=== PATIENT | male | born 1970 | race Caucasian/White ===

== ENCOUNTER 2021-06-29 18:05 | Inpatient (IN) ==
[2021-06-29] MEDS ORDERED: Ipratropium/Albuterol Neb 3 ML IH ONE (18:19)
[2021-06-29 18:50] LABS: Basophils % 0.1 %; Immature Granulocytes % 0.6 % (0-4); Mean Corpuscular Volume 90.6 fL (83.0-100.0); Red Blood Count 5.08 M/mcL (4.19-5.50); Red Cell Distribution Width 13.2 % (11.5-14.5)
[2021-06-29 18:51] LABS: Hemoglobin 15.5 g/dL (12.9-16.9); Immature Platelets 5.4 % (1.1-6.1); Lymphocytes # 0.7 K/mcL (0.6-4.6); Lymphocytes % 6.3 %; Mean Corpuscular HGB Conc 33.7 g/dL (31.6-35.5); Mean Corpuscular Hemoglobin 30.5 pg (28.0-33.3); Mean Platelet Volume 10.7 fL (9.4-12.4); Monocytes # 0.3 K/mcL (0.0-1.3); Monocytes % 2.7 %; Neutrophils # 9.4 K/mcL (1.6-8.9); Platelet Count 134 K/mcL (140-400); Segmented Neutrophils % 90.3 %; White Blood Count 10.4 K/mcL (4.3-11.1)
[2021-06-29 19:01] LABS: INR 1.2; Prothrombin Time 13.4 Seconds (9.4-12.1)
[2021-06-29 19:03] LABS: Activated Partial Thrombo Time 35.7 Seconds (26.0-36.0)
[2021-06-29 19:19] LABS: Alanine Aminotransferase 31 Units/L (7-52); Albumin 4.1 g/dL (3.5-5.7); Albumin/Globulin Ratio 1.1 (1.1-2.2); Alkaline Phosphatase 50 Units/L (34-104); Aspartate Amino Transferase 68 Units/L (13-39); BUN/Creatinine Ratio 13 (6-26); Bilirubin,Direct 0.1 mg/dL (0.0-0.2); Bilirubin,Indirect 0.6 mg/dL (0.0-1.0); Bilirubin,Total 0.7 mg/dL (0.3-1.0); Blood Urea Nitrogen 38 mg/dL (6-20); C-Reactive Protein 300 mg/L (Less than 10); Calcium 8.1 mg/dL (8.6-10.3); Carbon Dioxide 21 mEq/L (23-29); Chloride 100 mEq/L (98-107); Globulin 3.6 g/dL (2.4-3.5); Glucose 118 mg/dL (70-105); Lactate Dehydrogenase 696 Units/L (140-271); Magnesium 2.6 mg/dL (1.6-2.6); Osmolality,Calculated 290 (280-300); Phosphorous 3.9 mg/dL (2.7-4.5); Potassium 3.6 mEq/L (3.5-5.1); Sodium 135 mEq/L (136-145); Total Protein 7.7 g/dL (6.4-8.9); Troponin I 0.04 ng/mL (< 0.04); eGFR For African Americans 27 (> 60); eGFR For Non-African Americans 22 (> 60)
[2021-06-29 19:26] LABS: Ferritin > 1500 ng/mL (20-250)
[2021-06-29] MEDS ORDERED: cefTRIAXone 1,000 MG in 0.9 % Sodium Chloride Mini Bag 100 ML IVPB ONE (19:28)
[2021-06-29] MEDS ORDERED: Azithromycin 500 MG in 0.9 % Sodium Chloride 250 ML IVPB ONE (19:28)
[2021-06-29] MEDS ORDERED: Aspirin 325 MG TABLET PO ONE (19:44)
[2021-06-29] MEDS ORDERED: 0.9 % Sodium Chloride 500 ML IV ONE (20:09)
[2021-06-29] MEDS ORDERED: *HR* Heparin 5,000 UNIT/ML VIAL IVP PRN ×2 (20:12)
[2021-06-29] MEDS ORDERED: *HR* Heparin 5,000 UNIT/ML VIAL IVP ONE (20:12)
[2021-06-29] MEDS ORDERED: Heparin 25,000UNIT/250ML 1/2NS 25,000 UNIT/250 ML IV.SOLN IVC SCH (20:15)
[2021-06-29] MEDS ORDERED: Acetaminophen 325 MG TABLET PO PRN (20:36)
[2021-06-29] MEDS ORDERED: Naloxone 0.4 MG/ML INJ IVP PRN (20:36)
[2021-06-29] MEDS ORDERED: Ondansetron 4 MG/2 ML VIAL IVP PRN (20:36)
[2021-06-29 21:26] LABS: Hematocrit 41.4 % (37.5-50.1); Hemoglobin 14.6 g/dL (12.9-16.9); Mean Corpuscular HGB Conc 35.3 g/dL (31.6-35.5); Mean Corpuscular Hemoglobin 31.9 pg (28.0-33.3); Mean Corpuscular Volume 90.6 fL (83.0-100.0); Mean Platelet Volume 10.4 fL (9.4-12.4); Platelet Count 122 K/mcL (140-400); Red Blood Count 4.57 M/mcL (4.19-5.50); Red Cell Distribution Width 13.2 % (11.5-14.5); White Blood Count 9.2 K/mcL (4.3-11.1)
[2021-06-30 02:39] LABS: Basophils % 0.1 %; Hemoglobin 13.2 g/dL (12.9-16.9); Immature Granulocytes % 0.8 % (0-4); Segmented Neutrophils % 91.8 %
[2021-06-30 02:42] LABS: Hematocrit 39.4 % (37.5-50.1); Immature Platelets 4.4 % (1.1-6.1); Lymphocytes # 0.4 K/mcL (0.6-4.6); Lymphocytes % 4.9 %; Mean Corpuscular HGB Conc 33.5 g/dL (31.6-35.5); Mean Corpuscular Hemoglobin 30.3 pg (28.0-33.3); Mean Corpuscular Volume 90.6 fL (83.0-100.0); Mean Platelet Volume 10.2 fL (9.4-12.4); Monocytes # 0.2 K/mcL (0.0-1.3); Monocytes % 2.4 %; Neutrophils # 7.7 K/mcL (1.6-8.9); Platelet Count 126 K/mcL (140-400); Red Blood Count 4.35 M/mcL (4.19-5.50); White Blood Count 8.4 K/mcL (4.3-11.1)
[2021-06-30 02:55] LABS: Calcium 7.7 mg/dL (8.6-10.3); Magnesium 2.5 mg/dL (1.6-2.6); Potassium 3.6 mEq/L (3.5-5.1)
[2021-06-30 03:06] LABS: Thyroid Stimulating Hormone 0.826 mcIU/mL (0.340-5.600)
[2021-06-30 03:29] LABS: Estimated Average Glucose 117 mg/dl; Hemoglobin A1C 5.7 %
[2021-06-30] MEDS: Azithromycin 500 MG in 0.9 % Sodium Chloride 250 ML IVPB SCH (10:20)
[2021-06-30] MEDS: cefTRIAXone 1,000 MG in Water for inj. (sterile) 10 ML IVP SCH (10:20)
[2021-06-30] MEDS ORDERED: *HR* Heparin 5,000 UNIT/ML VIAL IVP PRN ×2 (10:23)
[2021-06-30] MEDS ORDERED: Dexamethasone Sodium Phos/PF 10 MG/ML VIAL IVP ONE (10:26)
[2021-06-30] MEDS ORDERED: Heparin 25,000UNIT/250ML 1/2NS 25,000 UNIT/250 ML IV.SOLN IVC SCH (10:30)
[2021-06-30] MEDS: 0.9 % Sodium Chloride 1,000 ML IVC SCH (11:09)
[2021-06-30] MEDS ORDERED: *HR* Heparin 5,000 UNIT/ML VIAL SQ SCH (14:00)
[2021-06-30] MEDS ORDERED: Heparin 25,000 UNIT/250 ML 25,000 UNIT/250 ML IV.SOLN IVC SCH (15:45)
[2021-06-30 20:05] LABS: Chloride,Urine < 15 mEq/L; Potassium,Urine 28.2 mEq/L; Sodium, Urine 21.9 mEq/L
[2021-06-30 20:13] LABS: Amorphous Sediment,Urine Few per hpf (None-Few); Bilirubin,Urine Negative (Negative); Blood,Urine Moderate (Negative); Clarity,Urine Turbid (Clear); Color,Urine Yellow (Yellow); Glucose,Urine (UA) Normal (Normal); Ketones,Urine Negative (Negative); Leukocyte Esterase,Urine Negative (Negative); Mucus,Urine Few per lpf (None-Few); Nitrite,Urine Negative (Negative); PH,Urine 5.5 pH Units (5.0-8.0); Protein,Urine 70 mg/dL (Neg-Trace); RBC,Urine 0-3 per hpf (0-3); Specific Gravity,Urine 1.018 (1.010-1.025); Squamous Epithelial Cell,Urine Few per hpf (None-Few); Urobilinogen,Urine Normal (Normal)
[2021-07-01] MEDS: 0.9 % Sodium Chloride 1,000 ML IVC SCH (03:33)
[2021-07-01] MEDS: cefTRIAXone 1,000 MG in Water for inj. (sterile) 10 ML IVP SCH (08:49)
[2021-07-01] MEDS: Azithromycin 500 MG in 0.9 % Sodium Chloride 250 ML IVPB SCH (08:49)
[2021-07-01] MEDS: Dexamethasone Sodium Phos/PF 10 MG/ML VIAL IVP SCH (08:50)
[2021-07-01] MEDS: Cholecalciferol (D-3) 1,000 UNIT (25MCG) TABLET PO SCH (08:51)
[2021-07-01 09:22] LABS: Basophils % 0.1 %; Hematocrit 39.8 % (37.5-50.1); Hemoglobin 13.5 g/dL (12.9-16.9); Immature Granulocytes % 1.2 % (0-4); Lymphocytes # 0.5 K/mcL (0.6-4.6); Lymphocytes % 5.1 %; Mean Corpuscular HGB Conc 33.9 g/dL (31.6-35.5); Mean Corpuscular Hemoglobin 30.9 pg (28.0-33.3); Mean Corpuscular Volume 91.1 fL (83.0-100.0); Monocytes # 0.5 K/mcL (0.0-1.3); Monocytes % 4.7 %; Neutrophils # 8.5 K/mcL (1.6-8.9); Platelet Count 174 K/mcL (140-400); Red Blood Count 4.37 M/mcL (4.19-5.50); Red Cell Distribution Width 13.4 % (11.5-14.5); Segmented Neutrophils % 88.9 %; White Blood Count 9.6 K/mcL (4.3-11.1)
[2021-07-01 09:28] LABS: Potassium 3.3 mEq/L (3.5-5.1)
[2021-07-01] MEDS ORDERED: Furosemide 40 MG/4 ML VIAL ONE (15:01)
[2021-07-01] MEDS: *HR* Heparin 5,000 UNIT/ML VIAL SQ SCH ×2 (15:25→22:51)
[2021-07-01] MEDS: Furosemide 40 MG/4 ML VIAL IVP SCH ×2 (15:29→20:01)
[2021-07-01] MEDS ORDERED: 0.9 % Sodium Chloride 1,000 ML IVC SCH (15:45)
[2021-07-01] MEDS ORDERED: *HR* Midazolam HCl 2 MG/2 ML VIAL IVP ONE (16:15)
[2021-07-01] MEDS ORDERED: *HR* Propofol 200 MG/20 ML VIAL IVP ONE ×2 (16:15→16:31)
[2021-07-01] MEDS ORDERED: *HR* Succinylcholine 200 MG/10 ML VIAL IVP ONE ×2 (16:15→16:31)
[2021-07-01] MEDS ORDERED: *HR* Rocuronium Bromide 50 MG/5 ML VIAL IVP ONE (16:15)
[2021-07-01] MEDS ORDERED: *HR* Etomidate 20 MG/10 ML AMPUL IVP ONE (16:15)
[2021-07-01] MEDS ORDERED: *HR* Midazolam HCl 5 MG/5 ML VIAL IVP ONE ×2 (16:15→16:31)
[2021-07-01] MEDS ORDERED: *HR* LORazepam 2 MG/ML VIAL IVP ONE (16:15)
[2021-07-01] MEDS ORDERED: Lidocaine -MPF 2% 5 ML VIAL ONE (16:31)
[2021-07-01] MEDS ORDERED: *HR* FentaNYL (PF) 100 MCG/2 ML VIAL ONE (16:31)
[2021-07-01] MEDS ORDERED: *HR* Etomidate 40 MG/20 ML VIAL IVP ONE (16:31)
[2021-07-01] MEDS ORDERED: *HR* Rocuronium Bromide 50 MG/5 ML VIAL ONE (16:32)
[2021-07-01] MEDS ORDERED: 0.9 % Sodium Chloride 500 ML ONE (16:42)
[2021-07-01] MEDS: Cisatracurium 200 MG in 0.9 % Sodium Chloride 180 ML IVC SCH (17:00)
[2021-07-01] MEDS: FentaNYL (PF) 1,000 MCG/100 ML IV.SOLN IVC SCH (17:13)
[2021-07-01] MEDS ORDERED: Artificial Tears SOLN 15 ML BOTTLE BOTH EYES PRN (17:32)
[2021-07-01 18:19] LABS: ABG Base Excess -6 mEq/L (-2 to 3); ABG HCO3 24 mEq/L (21-27); ABG Oxygen Saturation 99 % (95-98); ABG PCO2 63 mmHg (35-45); ABG PH 7.18 pH Units (7.32-7.45); ABG PO2 166 mmHg (85-104); ABG TCO2 26 mEq/L (20-26); Blood Gas Modality AF; Blood Gas VT 430 cc
[2021-07-01] MEDS ORDERED: Artificial Tears SOLN 15 ML BOTTLE BOTH EYES SCH (20:00)
[2021-07-01] MEDS: Artificial Tears SOLN 15 ML BOTTLE BOTH EYES SCH ×2 (20:00→23:49)
[2021-07-01] MEDS: Chlorhexidine Rinse 15 ML MOUTHWASH MM SCH (20:01)
[2021-07-01] MEDS ORDERED: Chlorhexidine Rinse 15 ML MOUTHWASH MM SCH (21:00)
[2021-07-01 22:43] LABS: VBG Ionized Calcium 1.06 mmol/L (1.15-1.35)
[2021-07-01 23:01] LABS: BUN/Creatinine Ratio 30 (6-26); Blood Urea Nitrogen 75 mg/dL (6-20); Calcium 7.5 mg/dL (8.6-10.3); Carbon Dioxide 21 mEq/L (23-29); Chloride 109 mEq/L (98-107); Glucose 171 mg/dL (70-105); Magnesium 3.2 mg/dL (1.6-2.6); Osmolality,Calculated 318 (280-300); Phosphorous 7.1 mg/dL (2.7-4.5); Sodium 141 mEq/L (136-145); eGFR For African Americans 34 (> 60); eGFR For Non-African Americans 28 (> 60)
[2021-07-01 23:02] LABS: Troponin I < 0.03 ng/mL (< 0.04)
[2021-07-02] MEDS: Cisatracurium 200 MG in 0.9 % Sodium Chloride 180 ML IVC SCH ×2 (02:20→13:50)
[2021-07-02] MEDS: Artificial Tears SOLN 15 ML BOTTLE BOTH EYES SCH ×5 (03:55→20:01)
[2021-07-02 04:14] LABS: ABG Base Excess -5 mEq/L (-2 to 3); ABG HCO3 22 mEq/L (21-27); ABG Oxygen Saturation 99 % (95-98); ABG PCO2 51 mmHg (35-45); ABG PH 7.25 pH Units (7.32-7.45); ABG PO2 139 mmHg (85-104); ABG TCO2 24 mEq/L (20-26); Blood Gas Modality ASSIST CONTROL; Blood Gas VT 430 cc
[2021-07-02 04:29] LABS: Basophils % 0.2 %; Hematocrit 35.2 % (37.5-50.1); Hemoglobin 11.8 g/dL (12.9-16.9); Lymphocytes # 0.5 K/mcL (0.6-4.6); Mean Corpuscular HGB Conc 33.5 g/dL (31.6-35.5); Mean Corpuscular Hemoglobin 31.3 pg (28.0-33.3); Mean Corpuscular Volume 93.4 fL (83.0-100.0); Mean Platelet Volume 9.7 fL (9.4-12.4); Monocytes # 0.5 K/mcL (0.0-1.3); Monocytes % 8.6 %; Platelet Count 178 K/mcL (140-400); Red Blood Count 3.77 M/mcL (4.19-5.50); Red Cell Distribution Width 13.6 % (11.5-14.5); Segmented Neutrophils % 81.2 %; White Blood Count 6.1 K/mcL (4.3-11.1)
[2021-07-02 04:36] LABS: VBG Ionized Calcium 1.06 mmol/L (1.15-1.35)
[2021-07-02 04:39] LABS: INR 1.1; Prothrombin Time 11.7 Seconds (9.4-12.1)
[2021-07-02 04:41] LABS: Activated Partial Thrombo Time 28.1 Seconds (26.0-36.0)
[2021-07-02 04:49] LABS: Bilirubin,Total 0.4 mg/dL (0.3-1.0); Calcium 7.4 mg/dL (8.6-10.3); Globulin 2.9 g/dL (2.4-3.5); Magnesium 3.3 mg/dL (1.6-2.6); Phosphorous 6.7 mg/dL (2.7-4.5); Potassium 3.9 mEq/L (3.5-5.1); Total Protein 5.9 g/dL (6.4-8.9)
[2021-07-02] MEDS: *HR* Heparin 5,000 UNIT/ML VIAL SQ SCH ×3 (05:34→21:29)
[2021-07-02] MEDS ORDERED: Calcium Gluconate 1gm/50mL 1 GM/50 ML BAG IVPB ONE (05:35)
[2021-07-02] MEDS: Chlorhexidine Rinse 15 ML MOUTHWASH MM SCH ×2 (07:39→20:01)
[2021-07-02] MEDS: Dexamethasone Sodium Phos/PF 10 MG/ML VIAL IVP SCH (07:41)
[2021-07-02] MEDS: Pantoprazole 40 MG VIAL IVP SCH (07:41)
[2021-07-02] MEDS: Cholecalciferol (D-3) 1,000 UNIT (25MCG) TABLET PO SCH (07:42)
[2021-07-02] MEDS: FentaNYL (PF) 1,000 MCG/100 ML IV.SOLN IVC SCH ×2 (13:19→21:29)
[2021-07-03] MEDS: Artificial Tears SOLN 15 ML BOTTLE BOTH EYES SCH ×7 (00:06→23:02)
[2021-07-03] MEDS: Cisatracurium 200 MG in 0.9 % Sodium Chloride 180 ML IVC SCH ×2 (00:25→18:15)
[2021-07-03 03:41] LABS: VBG Ionized Calcium 1.12 mmol/L (1.15-1.35)
[2021-07-03 03:53] LABS: Alanine Aminotransferase 97 Units/L (7-52); Albumin 2.9 g/dL (3.5-5.7); Albumin/Globulin Ratio 1.2 (1.1-2.2); Alkaline Phosphatase 46 Units/L (34-104); Aspartate Amino Transferase 54 Units/L (13-39); BUN/Creatinine Ratio 38 (6-26); Bilirubin,Total 0.4 mg/dL (0.3-1.0); Blood Urea Nitrogen 100 mg/dL (6-20); Calcium 7.8 mg/dL (8.6-10.3); Carbon Dioxide 22 mEq/L (23-29); Chloride 115 mEq/L (98-107); Globulin 2.4 g/dL (2.4-3.5); Glucose 166 mg/dL (70-105); Magnesium 3.8 mg/dL (1.6-2.6); Osmolality,Calculated 339 (280-300); Phosphorous 5.9 mg/dL (2.7-4.5); Sodium 147 mEq/L (136-145); Total Protein 5.3 g/dL (6.4-8.9); eGFR For African Americans 32 (> 60); eGFR For Non-African Americans 26 (> 60)
[2021-07-03 04:02] LABS: ABG Base Excess -4 mEq/L (-2 to 3); ABG HCO3 23 mEq/L (21-27); ABG Oxygen Saturation 97 % (95-98); ABG PCO2 44 mmHg (35-45); ABG PH 7.32 pH Units (7.32-7.45); ABG PO2 95 mmHg (85-104); ABG TCO2 24 mEq/L (20-26); Blood Gas Modality ASSIST CONTROL; Blood Gas VT 430 cc
[2021-07-03] MEDS: FentaNYL (PF) 1,000 MCG/100 ML IV.SOLN IVC SCH ×2 (05:01→10:27)
[2021-07-03 05:19] LABS: Basophils % 0.4 %; Hematocrit 34.1 % (37.5-50.1); Hemoglobin 11.1 g/dL (12.9-16.9); Immature Granulocytes % 3.8 % (0-4); Lymphocytes # 0.5 K/mcL (0.6-4.6); Mean Corpuscular HGB Conc 32.6 g/dL (31.6-35.5); Mean Corpuscular Hemoglobin 30.9 pg (28.0-33.3); Mean Platelet Volume 9.7 fL (9.4-12.4); Monocytes # 0.6 K/mcL (0.0-1.3); Monocytes % 10.2 %; Neutrophils # 4.4 K/mcL (1.6-8.9); Platelet Count 182 K/mcL (140-400); Red Blood Count 3.59 M/mcL (4.19-5.50); Red Cell Distribution Width 13.6 % (11.5-14.5); Segmented Neutrophils % 77.6 %; White Blood Count 5.6 K/mcL (4.3-11.1)
[2021-07-03] MEDS: *HR* Heparin 5,000 UNIT/ML VIAL SQ SCH ×3 (05:49→22:14)
[2021-07-03 06:44] LABS: Platelet Estimate Normal (Normal)
[2021-07-03 06:45] LABS: Reactive Lymphocytes Present (Not Present)
[2021-07-03] MEDS: Pantoprazole 40 MG VIAL IVP SCH (08:37)
[2021-07-03] MEDS: Chlorhexidine Rinse 15 ML MOUTHWASH MM SCH ×2 (08:38→20:26)
[2021-07-03] MEDS: Cholecalciferol (D-3) 1,000 UNIT (25MCG) TABLET PO SCH (08:39)
[2021-07-03] MEDS: Dexamethasone Sodium Phos/PF 10 MG/ML VIAL IVP SCH (08:39)
[2021-07-03] MEDS: Artificial Tears SOLN 15 ML BOTTLE BOTH EYES PRN (12:00)
[2021-07-03 17:21] LABS: Ferritin > 1500 ng/mL (20-250)
[2021-07-03] MEDS: FentaNYL (PF) 2,500 MCG/50 ML IV.SOLN IVC SCH ×2 (18:18→23:00)
[2021-07-04 04:02] LABS: ABG Base Excess -2 mEq/L (-2 to 3); ABG HCO3 25 mEq/L (21-27); ABG Oxygen Saturation 96 % (95-98); ABG PCO2 50 mmHg (35-45); ABG PO2 91 mmHg (85-104); ABG TCO2 26 mEq/L (20-26); Blood Gas Modality ASSIST CONTROL; Blood Gas VT 430 cc
[2021-07-04] MEDS: Cisatracurium 200 MG in 0.9 % Sodium Chloride 180 ML IVC SCH ×2 (04:35→16:40)
[2021-07-04 04:38] LABS: VBG Ionized Calcium 1.15 mmol/L (1.15-1.35)
[2021-07-04 04:46] LABS: Basophils % 0.3 %; Hematocrit 34.5 % (37.5-50.1); Hemoglobin 11.2 g/dL (12.9-16.9); Immature Granulocytes % 4.4 % (0-4); Lymphocytes # 0.5 K/mcL (0.6-4.6); Lymphocytes % 7.1 %; Mean Corpuscular HGB Conc 32.5 g/dL (31.6-35.5); Mean Corpuscular Hemoglobin 31.3 pg (28.0-33.3); Mean Corpuscular Volume 96.4 fL (83.0-100.0); Mean Platelet Volume 9.6 fL (9.4-12.4); Monocytes # 0.7 K/mcL (0.0-1.3); Monocytes % 10.1 %; Platelet Count 194 K/mcL (140-400); Red Blood Count 3.58 M/mcL (4.19-5.50); Red Cell Distribution Width 13.5 % (11.5-14.5); Segmented Neutrophils % 78.1 %; White Blood Count 7.1 K/mcL (4.3-11.1)
[2021-07-04 04:57] LABS: Neutrophils # 5.6 K/mcL (1.6-8.9)
[2021-07-04 05:11] LABS: Platelet Estimate Normal (Normal); Reactive Lymphocytes Present (Not Present)
[2021-07-04 05:16] LABS: Alanine Aminotransferase 74 Units/L (7-52); Albumin 2.9 g/dL (3.5-5.7); Albumin/Globulin Ratio 1.3 (1.1-2.2); Alkaline Phosphatase 50 Units/L (34-104); Aspartate Amino Transferase 30 Units/L (13-39); BUN/Creatinine Ratio 46 (6-26); Bilirubin,Total 0.4 mg/dL (0.3-1.0); Blood Urea Nitrogen 100 mg/dL (6-20); Calcium 7.8 mg/dL (8.6-10.3); Carbon Dioxide 23 mEq/L (23-29); Chloride 118 mEq/L (98-107); Globulin 2.3 g/dL (2.4-3.5); Glucose 154 mg/dL (70-105); Magnesium 4.1 mg/dL (1.6-2.6); Osmolality,Calculated 342 (280-300); Phosphorous 5.2 mg/dL (2.7-4.5); Potassium 4.4 mEq/L (3.5-5.1); Sodium 149 mEq/L (136-145); Total Protein 5.2 g/dL (6.4-8.9); eGFR For African Americans 39 (> 60); eGFR For Non-African Americans 32 (> 60)
[2021-07-04 05:34] LABS: Ferritin > 1500 ng/mL (20-250)
[2021-07-04] MEDS: Artificial Tears SOLN 15 ML BOTTLE BOTH EYES SCH ×6 (06:33→23:30)
[2021-07-04] MEDS: *HR* Heparin 5,000 UNIT/ML VIAL SQ SCH ×3 (06:34→21:27)
[2021-07-04] MEDS: Chlorhexidine Rinse 15 ML MOUTHWASH MM SCH ×2 (07:37→19:59)
[2021-07-04] MEDS: Cholecalciferol (D-3) 1,000 UNIT (25MCG) TABLET PO SCH (07:38)
[2021-07-04] MEDS: Pantoprazole 40 MG VIAL IVP SCH (07:38)
[2021-07-04] MEDS: Dexamethasone Sodium Phos/PF 10 MG/ML VIAL IVP SCH (07:38)
[2021-07-04] MEDS: Dexmedetomidine HCl 400 MCG/100 ML MLS IVC SCH ×2 (10:49→18:49)
[2021-07-04] MEDS: FentaNYL (PF) 2,500 MCG/50 ML IV.SOLN IVC SCH ×2 (11:48→23:30)
[2021-07-04] MEDS: D5% in Water 1,000 ML IVC SCH (17:03)
[2021-07-05] MEDS: Cisatracurium 200 MG in 0.9 % Sodium Chloride 180 ML IVC SCH (02:38)
[2021-07-05] MEDS: Artificial Tears SOLN 15 ML BOTTLE BOTH EYES SCH ×5 (02:38→19:54)
[2021-07-05 03:19] LABS: VBG Ionized Calcium 1.15 mmol/L (1.15-1.35)
[2021-07-05] MEDS: Dexmedetomidine HCl 400 MCG/100 ML MLS IVC SCH ×2 (03:27→13:07)
[2021-07-05 03:28] LABS: Basophils % 0.4 %; Eosinophils % 0.2 %; Hematocrit 37.2 % (37.5-50.1); Hemoglobin 11.6 g/dL (12.9-16.9); Immature Granulocytes % 5.5 % (0-4); Lymphocytes # 0.7 K/mcL (0.6-4.6); Lymphocytes % 7.2 %; Mean Corpuscular HGB Conc 31.2 g/dL (31.6-35.5); Mean Corpuscular Hemoglobin 31.1 pg (28.0-33.3); Mean Corpuscular Volume 99.7 fL (83.0-100.0); Mean Platelet Volume 9.5 fL (9.4-12.4); Monocytes # 0.7 K/mcL (0.0-1.3); Monocytes % 7.6 %; Neutrophils # 7.6 K/mcL (1.6-8.9); Platelet Count 196 K/mcL (140-400); Red Blood Count 3.73 M/mcL (4.19-5.50); Red Cell Distribution Width 13.2 % (11.5-14.5); Segmented Neutrophils % 79.1 %; White Blood Count 9.6 K/mcL (4.3-11.1)
[2021-07-05 03:50] LABS: Alanine Aminotransferase 69 Units/L (7-52); Albumin 2.8 g/dL (3.5-5.7); Albumin/Globulin Ratio 1.2 (1.1-2.2); Alkaline Phosphatase 54 Units/L (34-104); Aspartate Amino Transferase 27 Units/L (13-39); BUN/Creatinine Ratio 46 (6-26); Bilirubin,Total 0.5 mg/dL (0.3-1.0); Blood Urea Nitrogen 87 mg/dL (6-20); Calcium 7.6 mg/dL (8.6-10.3); Carbon Dioxide 25 mEq/L (23-29); Chloride 120 mEq/L (98-107); Globulin 2.3 g/dL (2.4-3.5); Glucose 116 mg/dL (70-105); Magnesium 3.7 mg/dL (1.6-2.6); Osmolality,Calculated 336 (280-300); Phosphorous 4.1 mg/dL (2.7-4.5); Potassium 4.7 mEq/L (3.5-5.1); Sodium 149 mEq/L (136-145); Total Protein 5.1 g/dL (6.4-8.9); eGFR For African Americans 45 (> 60); eGFR For Non-African Americans 37 (> 60)
[2021-07-05 03:53] LABS: Platelet Estimate Normal (Normal)
[2021-07-05 04:10] LABS: Ferritin > 1500 ng/mL (20-250)
[2021-07-05] MEDS: *HR* Heparin 5,000 UNIT/ML VIAL SQ SCH (05:26)
[2021-07-05 05:30] LABS: ABG Base Excess -1 mEq/L (-2 to 3); ABG HCO3 25 mEq/L (21-27); ABG Oxygen Saturation 90 % (95-98); ABG PCO2 45 mmHg (35-45); ABG PH 7.36 pH Units (7.32-7.45); ABG PO2 61 mmHg (85-104); ABG TCO2 26 mEq/L (20-26); Blood Gas Modality AF; Blood Gas VT 430 cc
[2021-07-05] MEDS: Chlorhexidine Rinse 15 ML MOUTHWASH MM SCH ×2 (07:17→19:54)
[2021-07-05] MEDS: Pantoprazole 40 MG VIAL IVP SCH (07:17)
[2021-07-05] MEDS: Dexamethasone Sodium Phos/PF 10 MG/ML VIAL IVP SCH (07:17)
[2021-07-05] MEDS: Cholecalciferol (D-3) 1,000 UNIT (25MCG) TABLET PO SCH (07:18)
[2021-07-05] MEDS: Nystatin SUSP 5 ML UD.LIQ PO SCH ×4 (08:52→19:54)
[2021-07-05 09:15] LABS: Bilirubin,Urine Negative (Negative); Blood,Urine Negative (Negative); Clarity,Urine Clear (Clear); Color,Urine Yellow (Yellow); Glucose,Urine (UA) Normal (Normal); Ketones,Urine Negative (Negative); Leukocyte Esterase,Urine Negative (Negative); Nitrite,Urine Negative (Negative); Protein,Urine Trace mg/dL (Neg-Trace); Urobilinogen,Urine Normal (Normal)
[2021-07-05 09:18] LABS: Bacteria,Urine Few per hpf (None-Few); Hyaline Casts,Urine Few per lpf (None Seen); Mucus,Urine Few per lpf (None-Few); RBC,Urine 0-3 per hpf (0-3); Squamous Epithelial Cell,Urine Few per hpf (None-Few); WBC,Urine 0-3 per hpf (0-3)
[2021-07-05] MEDS ORDERED: *HR* Heparin 5,000 UNIT/ML VIAL IVP PRN (09:37)
[2021-07-05] MEDS ORDERED: Heparin 25,000 UNIT/250 ML 25,000 UNIT/250 ML IV.SOLN IVC SCH (09:45)
[2021-07-05] MEDS: HEPARIN IVC SCH (11:06)
[2021-07-05] MEDS: D5 IVC SCH ×2 (11:06→13:08)
[2021-07-05] MEDS: WATER IVC SCH ×2 (11:06→13:08)
[2021-07-05 11:18] LABS: Hematocrit 37.7 % (37.5-50.1); Hemoglobin 11.7 g/dL (12.9-16.9); Mean Platelet Volume 9.4 fL (9.4-12.4); Platelet Count 198 K/mcL (140-400); Red Blood Count 3.77 M/mcL (4.19-5.50); Red Cell Distribution Width 13.2 % (11.5-14.5); White Blood Count 14.2 K/mcL (4.3-11.1)
[2021-07-05 11:26] LABS: Heparin anti-factor XA UFH 0.09 IU/mL (0.30-0.70)
[2021-07-05 11:27] LABS: Prothrombin Time 11.4 Seconds (9.4-12.1)
[2021-07-05] MEDS: Norepinephrine 4 MG/254 ML IV.SOLN IVC SCH (12:46)
[2021-07-05] MEDS: D5% in Water 1,000 ML IVC SCH (12:47)
[2021-07-05] MEDS: FentaNYL (PF) 2,500 MCG/50 ML IV.SOLN IVC SCH (13:07)
[2021-07-05] MEDS: CISATRACURIUM IVC SCH (13:08)
[2021-07-05 14:34] LABS: ABG Base Excess -2 mEq/L (-2 to 3); ABG HCO3 25 mEq/L (21-27); ABG Oxygen Saturation 96 % (95-98); ABG PCO2 52 mmHg (35-45); ABG PH 7.29 pH Units (7.32-7.45); ABG PO2 92 mmHg (85-104); ABG TCO2 27 mEq/L (20-26); Blood Gas VT 430 cc
[2021-07-05] MEDS: Piperacillin/Tazobactam 3.375 GM in 0.9 % Sodium Chloride Mini Bag 100 ML IVPB SCH (16:15)
[2021-07-05] MEDS ORDERED: 0.9 % Sodium Chloride 1,000 ML ONE (16:37)
[2021-07-06] MEDS: Piperacillin/Tazobactam 3.375 GM in 0.9 % Sodium Chloride Mini Bag 100 ML IVPB SCH ×4 (00:01→23:26)
[2021-07-06] MEDS: Artificial Tears SOLN 15 ML BOTTLE BOTH EYES SCH ×7 (00:02→23:26)
[2021-07-06] MEDS: Dexmedetomidine HCl 400 MCG/100 ML MLS IVC SCH ×4 (00:50→19:44)
[2021-07-06] MEDS: D5 IVC SCH ×4 (01:30→21:53)
[2021-07-06] MEDS: CISATRACURIUM IVC SCH ×3 (01:30→21:53)
[2021-07-06] MEDS: WATER IVC SCH ×4 (01:30→21:53)
[2021-07-06] MEDS: D5% in Water 1,000 ML IVC SCH ×2 (03:11→18:21)
[2021-07-06] MEDS: FentaNYL (PF) 2,500 MCG/50 ML IV.SOLN IVC SCH ×2 (03:25→15:44)
[2021-07-06 03:31] LABS: Basophils % 0.3 %; Eosinophils # 0.1 K/mcL (0.0-0.6); Eosinophils % 1.1 %; Hematocrit 35.8 % (37.5-50.1); Hemoglobin 11.4 g/dL (12.9-16.9); Immature Granulocytes % 6.6 % (0-4); Lymphocytes # 0.9 K/mcL (0.6-4.6); Lymphocytes % 7.5 %; Mean Corpuscular HGB Conc 31.8 g/dL (31.6-35.5); Mean Corpuscular Volume 97.3 fL (83.0-100.0); Mean Platelet Volume 9.4 fL (9.4-12.4); Monocytes # 0.6 K/mcL (0.0-1.3); Monocytes % 5.3 %; Neutrophils # 9.4 K/mcL (1.6-8.9); Platelet Count 184 K/mcL (140-400); Red Blood Count 3.68 M/mcL (4.19-5.50); Red Cell Distribution Width 13.1 % (11.5-14.5); Segmented Neutrophils % 79.2 %; White Blood Count 11.9 K/mcL (4.3-11.1)
[2021-07-06 03:43] LABS: VBG Ionized Calcium 1.01 mmol/L (1.15-1.35)
[2021-07-06 03:45] LABS: Alanine Aminotransferase 60 Units/L (7-52); Albumin 2.8 g/dL (3.5-5.7); Albumin/Globulin Ratio 1.3 (1.1-2.2); Alkaline Phosphatase 58 Units/L (34-104); Aspartate Amino Transferase 29 Units/L (13-39); BUN/Creatinine Ratio 48 (6-26); Bilirubin,Total 0.6 mg/dL (0.3-1.0); Blood Urea Nitrogen 69 mg/dL (6-20); Calcium 7.3 mg/dL (8.6-10.3); Carbon Dioxide 22 mEq/L (23-29); Chloride 117 mEq/L (98-107); Globulin 2.2 g/dL (2.4-3.5); Glucose 121 mg/dL (70-105); Magnesium 3.3 mg/dL (1.6-2.6); Osmolality,Calculated 323 (280-300); Phosphorous 3.9 mg/dL (2.7-4.5); Potassium 4.6 mEq/L (3.5-5.1); Sodium 146 mEq/L (136-145); eGFR For African Americans > 60 (> 60); eGFR For Non-African Americans 52 (> 60)
[2021-07-06 04:03] LABS: Ferritin > 1500 ng/mL (20-250)
[2021-07-06 04:42] LABS: ABG Base Excess -2 mEq/L (-2 to 3); ABG HCO3 24 mEq/L (21-27); ABG Oxygen Saturation 97 % (95-98); ABG PCO2 43 mmHg (35-45); ABG PH 7.35 pH Units (7.32-7.45); ABG PO2 91 mmHg (85-104); ABG TCO2 25 mEq/L (20-26); Blood Gas Modality AF; Blood Gas VT 430 cc
[2021-07-06 04:51] LABS: Platelet Estimate Normal (Normal)
[2021-07-06] MEDS: Calcium Gluconate 1gm/50mL 1 GM/50 ML BAG IVPB SCH ×2 (06:00→06:59)
[2021-07-06] MEDS: HEPARIN IVC SCH (07:04)
[2021-07-06] MEDS: Chlorhexidine Rinse 15 ML MOUTHWASH MM SCH ×2 (07:12→20:35)
[2021-07-06] MEDS: Pantoprazole 40 MG VIAL IVP SCH (07:13)
[2021-07-06] MEDS: Nystatin SUSP 5 ML UD.LIQ PO SCH ×4 (07:13→20:35)
[2021-07-06] MEDS: Cholecalciferol (D-3) 1,000 UNIT (25MCG) TABLET PO SCH (07:13)
[2021-07-06] MEDS: Dexamethasone Sodium Phos/PF 10 MG/ML VIAL IVP SCH (07:13)
[2021-07-06] MEDS ORDERED: Furosemide 40 MG/4 ML VIAL ONE (07:16)
[2021-07-06] MEDS ORDERED: Furosemide 40 MG/4 ML VIAL IVP SCH (09:00)
[2021-07-06] MEDS ORDERED: *HR* Midazolam HCl 2 MG/2 ML VIAL IVP PRN (13:55)
[2021-07-06] MEDS: Norepinephrine 4 MG/254 ML IV.SOLN IVC SCH (14:26)
[2021-07-07] MEDS: Dexmedetomidine HCl 400 MCG/100 ML MLS IVC SCH ×6 (00:25→23:40)
[2021-07-07] MEDS: Norepinephrine 4 MG/254 ML IV.SOLN IVC SCH ×3 (02:44→15:22)
[2021-07-07] MEDS: Artificial Tears SOLN 15 ML BOTTLE BOTH EYES SCH ×5 (04:20→20:04)
[2021-07-07 04:21] LABS: Basophils # 0.1 K/mcL (0.0-0.2); Basophils % 0.4 %; Eosinophils # 0.3 K/mcL (0.0-0.6); Eosinophils % 1.6 %; Immature Granulocytes % 7.6 % (0-4); Lymphocytes # 1.1 K/mcL (0.6-4.6); Lymphocytes % 5.6 %; Mean Corpuscular HGB Conc 32.4 g/dL (31.6-35.5); Mean Corpuscular Hemoglobin 31.5 pg (28.0-33.3); Mean Corpuscular Volume 97.2 fL (83.0-100.0); Monocytes # 1.1 K/mcL (0.0-1.3); Monocytes % 5.8 %; Neutrophils # 15.4 K/mcL (1.6-8.9); Platelet Count 248 K/mcL (140-400); Red Blood Count 4.32 M/mcL (4.19-5.50)
[2021-07-07 04:25] LABS: Hemoglobin 13.6 g/dL (12.9-16.9); White Blood Count 19.5 K/mcL (4.3-11.1)
[2021-07-07 04:38] LABS: ABG Base Excess -2 mEq/L (-2 to 3); ABG HCO3 26 mEq/L (21-27); ABG Oxygen Saturation 83 % (95-98); ABG PCO2 55 mmHg (35-45); ABG PH 7.28 pH Units (7.32-7.45); ABG PO2 54 mmHg (85-104); ABG TCO2 27 mEq/L (20-26); Blood Gas VT 430 cc
[2021-07-07 04:39] LABS: Alanine Aminotransferase 61 Units/L (7-52); Albumin 2.8 g/dL (3.5-5.7); Albumin/Globulin Ratio 1.2 (1.1-2.2); Alkaline Phosphatase 77 Units/L (34-104); Aspartate Amino Transferase 42 Units/L (13-39); BUN/Creatinine Ratio 41 (6-26); Bilirubin,Total 0.7 mg/dL (0.3-1.0); Blood Urea Nitrogen 59 mg/dL (6-20); Calcium 7.4 mg/dL (8.6-10.3); Carbon Dioxide 23 mEq/L (23-29); Chloride 107 mEq/L (98-107); Globulin 2.4 g/dL (2.4-3.5); Glucose 131 mg/dL (70-105); Osmolality,Calculated 306 (280-300); Potassium 4.4 mEq/L (3.5-5.1); Sodium 139 mEq/L (136-145); Total Protein 5.2 g/dL (6.4-8.9); eGFR For African Americans > 60 (> 60); eGFR For Non-African Americans 52 (> 60)
[2021-07-07 04:41] LABS: Platelet Estimate Normal (Normal)
[2021-07-07] MEDS: WATER IVC SCH ×4 (04:53→16:00)
[2021-07-07] MEDS: D5 IVC SCH ×4 (04:53→16:00)
[2021-07-07] MEDS: CISATRACURIUM IVC SCH ×2 (04:53→16:00)
[2021-07-07 04:57] LABS: Ferritin 1253 ng/mL (20-250)
[2021-07-07] MEDS: FentaNYL (PF) 2,500 MCG/50 ML IV.SOLN IVC SCH ×2 (05:34→19:25)
[2021-07-07] MEDS: D5% in Water 1,000 ML IVC SCH (07:49)
[2021-07-07] MEDS: Dexamethasone Sodium Phos/PF 10 MG/ML VIAL IVP SCH (07:50)
[2021-07-07] MEDS: Cholecalciferol (D-3) 1,000 UNIT (25MCG) TABLET PO SCH (07:50)
[2021-07-07] MEDS: Piperacillin/Tazobactam 3.375 GM in 0.9 % Sodium Chloride Mini Bag 100 ML IVPB SCH ×2 (07:50→15:27)
[2021-07-07] MEDS: Chlorhexidine Rinse 15 ML MOUTHWASH MM SCH ×2 (07:50→20:04)
[2021-07-07] MEDS: HEPARIN IVC SCH ×2 (07:52→13:12)
[2021-07-07] MEDS: Pantoprazole 40 MG VIAL IVP SCH (07:53)
[2021-07-07] MEDS: Nystatin SUSP 5 ML UD.LIQ PO SCH ×4 (08:26→20:04)
[2021-07-07] MEDS: Furosemide 40 MG/4 ML VIAL IVP SCH ×2 (12:37→20:04)
[2021-07-08] MEDS: Norepinephrine 4 MG/254 ML IV.SOLN IVC SCH (00:05)
[2021-07-08] MEDS: Piperacillin/Tazobactam 3.375 GM in 0.9 % Sodium Chloride Mini Bag 100 ML IVPB SCH ×4 (00:17→23:45)
[2021-07-08] MEDS: Artificial Tears SOLN 15 ML BOTTLE BOTH EYES SCH ×7 (00:17→23:45)
[2021-07-08] MEDS: D5 IVC SCH ×2 (03:46→06:48)
[2021-07-08] MEDS: WATER IVC SCH ×2 (03:46→06:48)
[2021-07-08] MEDS: CISATRACURIUM IVC SCH (03:46)
[2021-07-08] MEDS: Dexmedetomidine HCl 400 MCG/100 ML MLS IVC SCH ×5 (03:47→20:15)
[2021-07-08 03:59] LABS: ABG Base Excess -2 mEq/L (-2 to 3); ABG HCO3 26 mEq/L (21-27); ABG Oxygen Saturation 95 % (95-98); ABG PCO2 56 mmHg (35-45); ABG PH 7.27 pH Units (7.32-7.45); ABG PO2 85 mmHg (85-104); ABG TCO2 27 mEq/L (20-26); Blood Gas VT 430 cc
[2021-07-08 04:08] LABS: Basophils % 0.4 %; Lymphocytes % 2.8 %; Monocytes % 4.9 %
[2021-07-08 04:09] LABS: Basophils # 0.1 K/mcL (0.0-0.2); Eosinophils # 0.2 K/mcL (0.0-0.6); Eosinophils % 0.6 %; Hematocrit 43.4 % (37.5-50.1); Hemoglobin 14.1 g/dL (12.9-16.9); Immature Granulocytes % 5.2 % (0-4); Lymphocytes # 0.8 K/mcL (0.6-4.6); Mean Corpuscular HGB Conc 32.5 g/dL (31.6-35.5); Mean Corpuscular Hemoglobin 30.7 pg (28.0-33.3); Mean Corpuscular Volume 94.3 fL (83.0-100.0); Mean Platelet Volume 10.2 fL (9.4-12.4); Monocytes # 1.4 K/mcL (0.0-1.3); Neutrophils # 23.8 K/mcL (1.6-8.9); Platelet Count 236 K/mcL (140-400); Red Cell Distribution Width 12.9 % (11.5-14.5); Segmented Neutrophils % 86.1 %; White Blood Count 27.6 K/mcL (4.3-11.1)
[2021-07-08 04:18] LABS: BUN/Creatinine Ratio 47 (6-26); Blood Urea Nitrogen 64 mg/dL (6-20); Calcium 7.4 mg/dL (8.6-10.3); Carbon Dioxide 22 mEq/L (23-29); Chloride 104 mEq/L (98-107); Glucose 122 mg/dL (70-105); Osmolality,Calculated 304 (280-300); Potassium 4.7 mEq/L (3.5-5.1); Sodium 137 mEq/L (136-145); eGFR For African Americans > 60 (> 60); eGFR For Non-African Americans 55 (> 60)
[2021-07-08] MEDS: HEPARIN IVC SCH (06:48)
[2021-07-08] MEDS: Docusate Oral Soln 100 MG/10 ML UDC GTUBE SCH ×2 (08:43→20:44)
[2021-07-08] MEDS: Nystatin SUSP 5 ML UD.LIQ PO SCH ×4 (08:43→20:45)
[2021-07-08] MEDS: Chlorhexidine Rinse 15 ML MOUTHWASH MM SCH ×2 (08:43→20:44)
[2021-07-08] MEDS: Furosemide 40 MG/4 ML VIAL IVP SCH ×2 (08:44→20:44)
[2021-07-08] MEDS: Pantoprazole 40 MG VIAL IVP SCH (08:44)
[2021-07-08] MEDS: Dexamethasone Sodium Phos/PF 10 MG/ML VIAL IVP SCH (08:44)
[2021-07-08] MEDS: Cholecalciferol (D-3) 1,000 UNIT (25MCG) TABLET PO SCH (08:45)
[2021-07-08] MEDS: FentaNYL (PF) 2,500 MCG/50 ML IV.SOLN IVC SCH ×2 (10:10→21:15)
[2021-07-08] MEDS: *HR* Midazolam HCl 2 MG/2 ML VIAL IVP PRN ×2 (12:31→16:41)
[2021-07-09] MEDS: Dexmedetomidine HCl 400 MCG/100 ML MLS IVC SCH ×7 (00:01→21:08)
[2021-07-09] MEDS: D5 IVC SCH ×3 (03:00→14:30)
[2021-07-09] MEDS: CISATRACURIUM IVC SCH ×2 (03:00→14:30)
[2021-07-09] MEDS: WATER IVC SCH ×3 (03:00→14:30)
[2021-07-09] MEDS: Artificial Tears SOLN 15 ML BOTTLE BOTH EYES SCH ×5 (03:43→20:37)
[2021-07-09 04:18] LABS: Hematocrit 40.3 % (37.5-50.1); Hemoglobin 13.3 g/dL (12.9-16.9); Mean Corpuscular Hemoglobin 31.1 pg (28.0-33.3); Mean Corpuscular Volume 94.2 fL (83.0-100.0); Mean Platelet Volume 10.5 fL (9.4-12.4); Platelet Count 234 K/mcL (140-400); Red Blood Count 4.28 M/mcL (4.19-5.50); Red Cell Distribution Width 13.1 % (11.5-14.5)
[2021-07-09 04:22] LABS: Heparin anti-factor XA UFH 0.3 IU/mL (0.30-0.70)
[2021-07-09] MEDS: HEPARIN IVC SCH (04:24)
[2021-07-09 04:29] LABS: Calcium 7.6 mg/dL (8.6-10.3); Potassium 4.9 mEq/L (3.5-5.1)
[2021-07-09 04:47] LABS: Lymphocytes # 0.6 K/mcL (0.6-4.6); Monocytes # 0.6 K/mcL (0.0-1.3); Neutrophils # 27.6 K/mcL (1.6-8.9); Platelet Estimate Normal (Normal)
[2021-07-09 05:30] LABS: ABG Base Excess -2 mEq/L (-2 to 3); ABG HCO3 27 mEq/L (21-27); ABG Oxygen Saturation 92 % (95-98); ABG PCO2 63 mmHg (35-45); ABG PH 7.23 pH Units (7.32-7.45); ABG PO2 77 mmHg (85-104); ABG TCO2 28 mEq/L (20-26); Blood Gas Modality ASSIST CONTROL; Blood Gas VT 430 cc
[2021-07-09] MEDS: Piperacillin/Tazobactam 3.375 GM in 0.9 % Sodium Chloride Mini Bag 100 ML IVPB SCH ×2 (07:22→15:32)
[2021-07-09] MEDS: Chlorhexidine Rinse 15 ML MOUTHWASH MM SCH ×2 (07:22→20:38)
[2021-07-09] MEDS: Pantoprazole 40 MG VIAL IVP SCH (07:22)
[2021-07-09] MEDS: Nystatin SUSP 5 ML UD.LIQ PO SCH ×4 (07:22→20:38)
[2021-07-09] MEDS: Docusate Oral Soln 100 MG/10 ML UDC GTUBE SCH ×2 (07:23→20:38)
[2021-07-09] MEDS: Cholecalciferol (D-3) 1,000 UNIT (25MCG) TABLET PO SCH (07:23)
[2021-07-09] MEDS: Furosemide 40 MG/4 ML VIAL IVP SCH ×2 (07:23→20:38)
[2021-07-09] MEDS: Dexamethasone Sodium Phos/PF 10 MG/ML VIAL IVP SCH (07:23)
[2021-07-09 09:49] LABS: Bilirubin,Urine Negative (Negative); Blood,Urine Moderate (Negative); Clarity,Urine Cloudy (Clear); Color,Urine Brown (Yellow); Glucose,Urine (UA) Normal (Normal); Ketones,Urine Negative (Negative); Leukocyte Esterase,Urine Trace (Negative); Nitrite,Urine Negative (Negative); Protein,Urine 30 mg/dL (Neg-Trace); Urobilinogen,Urine Normal (Normal)
[2021-07-09 10:04] LABS: RBC,Urine Present per hpf (0-3)
[2021-07-09 10:05] LABS: Granular Casts,Urine Present per lpf (None Seen)
[2021-07-09 10:06] LABS: WBC,Urine Present per hpf (0-3)
[2021-07-09 10:08] LABS: Renal Epithelial Cells,Urine Present per hpf (None-Few); Squamous Epithelial Cell,Urine Present per hpf (None-Few)
[2021-07-09 10:09] LABS: Amorphous Sediment,Urine Present per hpf (None-Few)
[2021-07-09 10:10] LABS: Magnesium 2.9 mg/dL (1.6-2.6); Phosphorous 5.7 mg/dL (2.7-4.5)
[2021-07-09] MEDS: *HR* Midazolam HCl 2 MG/2 ML VIAL IVP PRN ×2 (10:10→11:25)
[2021-07-09] MEDS ORDERED: Vancomycin 1,750 MG/517.5 ML IV.SOLN IVPB SCH (11:00)
[2021-07-09] MEDS: FentaNYL (PF) 2,500 MCG/50 ML IV.SOLN IVC SCH (11:30)
[2021-07-09] MEDS: Norepinephrine 4 MG/254 ML IV.SOLN IVC SCH (15:56)
[2021-07-10] MEDS: Piperacillin/Tazobactam 3.375 GM in 0.9 % Sodium Chloride Mini Bag 100 ML IVPB SCH ×3 (00:18→15:34)
[2021-07-10] MEDS: Artificial Tears SOLN 15 ML BOTTLE BOTH EYES SCH ×6 (00:19→20:36)
[2021-07-10] MEDS: Dexmedetomidine HCl 400 MCG/100 ML MLS IVC SCH ×8 (00:27→23:08)
[2021-07-10] MEDS: CISATRACURIUM IVC SCH ×2 (01:07→13:45)
[2021-07-10] MEDS: D5 IVC SCH ×5 (01:07→21:00)
[2021-07-10] MEDS: WATER IVC SCH ×5 (01:07→21:00)
[2021-07-10] MEDS: HEPARIN IVC SCH ×3 (01:57→21:00)
[2021-07-10] MEDS: Midazolam HCl 50 MG/100 ML IV.SOLN IVC SCH ×2 (03:00→14:30)
[2021-07-10 04:20] LABS: ABG Base Excess -3 mEq/L (-2 to 3); ABG HCO3 24 mEq/L (21-27); ABG Oxygen Saturation 86 % (95-98); ABG PCO2 50 mmHg (35-45); ABG PO2 58 mmHg (85-104); ABG TCO2 26 mEq/L (20-26); Blood Gas Modality AF; Blood Gas VT 430 cc
[2021-07-10 04:41] LABS: Heparin anti-factor XA UFH 0.27 IU/mL (0.30-0.70)
[2021-07-10 04:42] LABS: Mean Platelet Volume 10.8 fL (9.4-12.4); Red Cell Distribution Width 12.9 % (11.5-14.5)
[2021-07-10 04:43] LABS: Hematocrit 36.4 % (37.5-50.1); Hemoglobin 12.2 g/dL (12.9-16.9); Mean Corpuscular HGB Conc 33.5 g/dL (31.6-35.5); Mean Corpuscular Hemoglobin 31.3 pg (28.0-33.3); Mean Corpuscular Volume 93.3 fL (83.0-100.0); Platelet Count 279 K/mcL (140-400)
[2021-07-10 04:52] LABS: White Blood Count 39.4 K/mcL (4.3-11.1)
[2021-07-10 05:16] LABS: Eosinophils # 0.8 K/mcL (0.0-0.6); Lymphocytes # 3.9 K/mcL (0.6-4.6); Monocytes # 0.8 K/mcL (0.0-1.3); Neutrophils # 32.3 K/mcL (1.6-8.9); Platelet Estimate Normal (Normal)
[2021-07-10 05:26] LABS: Calcium 7.7 mg/dL (8.6-10.3); Potassium 4.1 mEq/L (3.5-5.1)
[2021-07-10] MEDS: Chlorhexidine Rinse 15 ML MOUTHWASH MM SCH ×2 (07:49→20:35)
[2021-07-10] MEDS: Nystatin SUSP 5 ML UD.LIQ PO SCH ×4 (07:50→20:35)
[2021-07-10] MEDS: Micafungin 100 MG in 0.9 % Sodium Chloride Mini Bag 100 ML IVPB SCH (07:52)
[2021-07-10] MEDS: Docusate Oral Soln 100 MG/10 ML UDC GTUBE SCH ×2 (07:53→20:35)
[2021-07-10] MEDS: Pantoprazole 40 MG VIAL IVP SCH (07:53)
[2021-07-10] MEDS: Cholecalciferol (D-3) 1,000 UNIT (25MCG) TABLET PO SCH (07:53)
[2021-07-10] MEDS: FentaNYL (PF) 2,500 MCG/50 ML IV.SOLN IVC SCH ×3 (09:45→19:45)
[2021-07-10 12:25] LABS: Calcium 7.7 mg/dL (8.6-10.3)
[2021-07-10 12:27] LABS: Albumin 2.9 g/dL (3.5-5.7); Albumin/Globulin Ratio 1.3 (1.1-2.2); Bilirubin,Direct 0.4 mg/dL (0.0-0.2); Bilirubin,Indirect 0.3 mg/dL (0.0-1.0); Bilirubin,Total 0.7 mg/dL (0.3-1.0); Calcium 7.7 mg/dL (8.6-10.3); Globulin 2.2 g/dL (2.4-3.5); Total Protein 5.1 g/dL (6.4-8.9)
[2021-07-10] MEDS: Norepinephrine 4 MG/254 ML IV.SOLN IVC SCH ×2 (14:02→15:35)
[2021-07-10 14:07] LABS: ABG Base Excess -3 mEq/L (-2 to 3); ABG HCO3 26 mEq/L (21-27); ABG Oxygen Saturation 78 % (95-98); ABG PCO2 66 mmHg (35-45); ABG PH 7.21 pH Units (7.32-7.45); ABG PO2 53 mmHg (85-104); ABG TCO2 28 mEq/L (20-26); Blood Gas Modality ASSIST CONTROL; Blood Gas VT 430 cc
[2021-07-10] MEDS ORDERED: Furosemide 40 MG/4 ML VIAL IVP ONE (14:12)
[2021-07-10] MEDS ORDERED: Albumin 25% 25gram/100mL 25 GM/100 ML IV.SOLN IVPB ONE (14:31)
[2021-07-10] MEDS ORDERED: Furosemide 40 MG/4 ML VIAL ONE (14:32)
[2021-07-10] MEDS ORDERED: Albumin 25% 25gram/100mL 25 GM/100 ML IV.SOLN ONE (14:32)
[2021-07-10 16:06] LABS: ABG Base Excess -3 mEq/L (-2 to 3); ABG HCO3 26 mEq/L (21-27); ABG Oxygen Saturation 83 % (95-98); ABG PCO2 68 mmHg (35-45); ABG PH 7.19 pH Units (7.32-7.45); ABG PO2 61 mmHg (85-104); ABG TCO2 28 mEq/L (20-26); Blood Gas VT 430 cc
[2021-07-10] MEDS: *HR* Heparin 5,000 UNIT/ML VIAL IVP PRN (18:53)
[2021-07-11] MEDS: Artificial Tears SOLN 15 ML BOTTLE BOTH EYES SCH ×7 (00:08→23:43)
[2021-07-11] MEDS: Piperacillin/Tazobactam 3.375 GM in 0.9 % Sodium Chloride Mini Bag 100 ML IVPB SCH ×4 (00:08→23:43)
[2021-07-11] MEDS: D5 IVC SCH ×4 (00:22→23:50)
[2021-07-11] MEDS: CISATRACURIUM IVC SCH ×3 (00:22→23:50)
[2021-07-11] MEDS: WATER IVC SCH ×4 (00:22→23:50)
[2021-07-11] MEDS: Midazolam HCl 50 MG/100 ML IV.SOLN IVC SCH ×3 (01:10→20:28)
[2021-07-11] MEDS: Dexmedetomidine HCl 400 MCG/100 ML MLS IVC SCH ×6 (02:21→20:56)
[2021-07-11 04:42] LABS: ABG Base Excess -1 mEq/L (-2 to 3); ABG HCO3 24 mEq/L (21-27); ABG Oxygen Saturation 93 % (95-98); ABG PCO2 42 mmHg (35-45); ABG PH 7.37 pH Units (7.32-7.45); ABG PO2 70 mmHg (85-104); ABG TCO2 26 mEq/L (20-26); Blood Gas Modality AF; Blood Gas VT 550 cc
[2021-07-11 04:51] LABS: Eosinophils # 0.2 K/mcL (0.0-0.6); Hematocrit 30.6 % (37.5-50.1); Mean Corpuscular HGB Conc 33.7 g/dL (31.6-35.5); Mean Corpuscular Hemoglobin 31.1 pg (28.0-33.3); Mean Corpuscular Volume 92.4 fL (83.0-100.0); Mean Platelet Volume 10.8 fL (9.4-12.4); Platelet Count 216 K/mcL (140-400); Red Blood Count 3.31 M/mcL (4.19-5.50); White Blood Count 22.6 K/mcL (4.3-11.1)
[2021-07-11 04:53] LABS: Calcium 7.6 mg/dL (8.6-10.3); Potassium 3.9 mEq/L (3.5-5.1)
[2021-07-11 04:55] LABS: Magnesium 2.9 mg/dL (1.6-2.6); Phosphorous 4.7 mg/dL (2.7-4.5)
[2021-07-11 05:06] LABS: Hemoglobin 10.3 g/dL (12.9-16.9)
[2021-07-11 06:40] LABS: Lymphocytes # 1.8 K/mcL (0.6-4.6); Monocytes # 0.9 K/mcL (0.0-1.3); Neutrophils # 19.7 K/mcL (1.6-8.9); Platelet Estimate Normal (Normal); Reactive Lymphocytes Present (Not Present)
[2021-07-11] MEDS: Norepinephrine 4 MG/254 ML IV.SOLN IVC SCH ×2 (08:16→15:28)
[2021-07-11] MEDS: FentaNYL (PF) 2,500 MCG/50 ML IV.SOLN IVC SCH ×2 (08:18→20:00)
[2021-07-11] MEDS: Pantoprazole 40 MG VIAL IVP SCH (08:28)
[2021-07-11] MEDS: Nystatin SUSP 5 ML UD.LIQ PO SCH ×4 (08:28→20:12)
[2021-07-11] MEDS: Chlorhexidine Rinse 15 ML MOUTHWASH MM SCH ×2 (08:28→20:12)
[2021-07-11] MEDS: Cholecalciferol (D-3) 1,000 UNIT (25MCG) TABLET PO SCH (08:28)
[2021-07-11] MEDS: *HR* Heparin 5,000 UNIT/ML VIAL IVP PRN (08:28)
[2021-07-11] MEDS: Docusate Oral Soln 100 MG/10 ML UDC GTUBE SCH ×2 (08:28→20:12)
[2021-07-11] MEDS: Micafungin 100 MG in 0.9 % Sodium Chloride Mini Bag 100 ML IVPB SCH (08:30)
[2021-07-11] MEDS ORDERED: Heparin 1,000 UNITS/500 mL 500 ML ONE (13:07)
[2021-07-11] MEDS ORDERED: *HR* Heparin 5,000 UNIT/ML VIAL ONE (13:34)
[2021-07-11] MEDS ORDERED: Lidocaine -MPF 1% 5 ML AMPUL ONE (13:46)
[2021-07-11] MEDS: HEPARIN IVC SCH (15:20)
[2021-07-11 15:40] LABS: ABG Base Excess -3 mEq/L (-2 to 3); ABG HCO3 23 mEq/L (21-27); ABG Oxygen Saturation 96 % (95-98); ABG PCO2 42 mmHg (35-45); ABG PH 7.34 pH Units (7.32-7.45); ABG PO2 87 mmHg (85-104); ABG TCO2 24 mEq/L (20-26); Blood Gas Modality ASSIST CONTROL; Blood Gas VT 550 cc
[2021-07-11] MEDS ORDERED: *HR* Heparin 5,000 UNIT/ML VIAL IVP PRN (16:30)
[2021-07-11] MEDS ORDERED: 0.9 % Sodium Chloride 1,000 ML PRIME SCH (16:30)
[2021-07-11] MEDS ORDERED: PrismaSATE BGK 4/2.5 5,000 ML CRRT SCH (16:45)
[2021-07-11] MEDS ORDERED: 0.9 % Sodium Chloride 1,000 ML PRIME PRN (17:41)
[2021-07-11] MEDS: PrismaSATE BGK 4/2.5 5,000 ML CRRT SCH ×2 (18:35)
[2021-07-11] MEDS: Artificial Tears SOLN 15 ML BOTTLE BOTH EYES PRN (20:12)
[2021-07-11] MEDS: Bisacodyl 10 MG RECTAL SUPPOSITORY RC SCH ×2 (20:12→23:59)
[2021-07-12] MEDS: PrismaSATE BGK 4/2.5 5,000 ML CRRT SCH ×2 (00:37)
[2021-07-12] MEDS: Dexmedetomidine HCl 400 MCG/100 ML MLS IVC SCH ×2 (00:48→04:51)
[2021-07-12] MEDS: Midazolam HCl 50 MG/100 ML IV.SOLN IVC SCH (02:58)
[2021-07-12] MEDS: Artificial Tears SOLN 15 ML BOTTLE BOTH EYES SCH (04:17)
[2021-07-12] MEDS: D5 IVC SCH (04:18)
[2021-07-12] MEDS: WATER IVC SCH (04:18)
[2021-07-12] MEDS: HEPARIN IVC SCH (04:18)
[2021-07-12 04:19] LABS: Mean Platelet Volume 10.5 fL (9.4-12.4)
[2021-07-12 04:21] LABS: Hematocrit 33.4 % (37.5-50.1); Hemoglobin 10.9 g/dL (12.9-16.9); Mean Corpuscular HGB Conc 32.6 g/dL (31.6-35.5); Mean Corpuscular Hemoglobin 30.4 pg (28.0-33.3); Mean Corpuscular Volume 93.3 fL (83.0-100.0); Nucleated Red Blood Cells 0.1 /100 WBC (0); Platelet Count 220 K/mcL (140-400); Red Blood Count 3.58 M/mcL (4.19-5.50); Red Cell Distribution Width 13.5 % (11.5-14.5); White Blood Count 28.1 K/mcL (4.3-11.1)
[2021-07-12 04:50] LABS: Lymphocytes # 1.7 K/mcL (0.6-4.6); Monocytes # 0.6 K/mcL (0.0-1.3); Neutrophils # 24.2 K/mcL (1.6-8.9)
[2021-07-12 04:51] LABS: Platelet Estimate Normal (Normal); Toxic Granulation Present (Not Present)
[2021-07-12 05:02] LABS: Calcium 7.7 mg/dL (8.6-10.3)
[2021-07-12] MEDS ORDERED: *HR* LORazepam 2 MG/ML VIAL IVP PRN (08:30)
[2021-07-12] MEDS ORDERED: *HR* FentaNYL (PF) 100 MCG/2 ML VIAL IVP PRN (08:30)
[2021-07-12] MEDS ORDERED: FentaNYL (PF) 2,500 MCG/50 ML IV.SOLN IVC SCH (08:31)
[2021-07-12 08:50] VITALS: TEMP 99.7
[2021-07-12 09:07] VITALS: BP 104/51; PULSE 105; O2SAT 87
[2021-07-12] MEDS: FentaNYL (PF) 2,500 MCG/50 ML IV.SOLN IVC SCH (09:56)
== END 2021-07-12 10:20 | disposition expired | DRG 207 ==
LOC: 2NENU 18:05 → EMEROOARM 18:05 → OBSVTOIN 20:23 → 2NENU 21:28 → ICNU 07-01 14:35
PROVIDERS: ADMIT Internal Medicine; ATTEND Internal Medicine